=== PATIENT | female | born 1955 | race African-American/Black ===

== ENCOUNTER 2024-06-28 06:48 | Day surgery (SDC) | payer OTHER ==
[2024-06-25 10:08] LABS: Absolute Basophils 0.1 K/uL (0-0.5); Absolute Eosinophils 0.2 K/uL (0-0.5); Absolute Lymphocytes (CBC) 2.1 K/uL (0.7-4.9); Absolute Monocytes 0.6 K/uL (0.1-1.3); Absolute Neutrophil 4.3 K/uL (1.8-8.0); Basophils % 0.9 % (0-1.3); Eosinophils % 2.4 % (0-4.4); Hematocrit 38.7 % (36.0-45.0); Hemoglobin 13.3 g/dL (12.0-15.0); Lymphocytes % 29.4 % (15.3-44.8); MCH 32.7 pg (27.0-35.0); MCHC 34.3 g/dL (32.0-36.0); MCV 95.3 fL (80-100); MPV 7.4 fL (7.6-11.3); Monocytes % 7.7 % (3.3-12.3); Neutrophils % 59.6 % (41.7-73.7); Nucleated Red Blood Cells % 0.1 % (0-0); Platelets 405 thou/uL (152-406); RBC Red Blood Cell Count 4.06 M/uL (3.86-4.86); Red Cell Distribution Width 13.1 % (12.1-15.2)
[2024-06-25 10:20] LABS: Protime INR 1.15
[2024-06-25 10:21] LABS: Anion Gap 6.8 mEq/L (5.0-15.0); PTT, Activated Partial Thromb 30.6 SECONDS (27.2-37.4); Potassium 3.8 mEq/L (3.5-5.1)
--- NOTE | 2024-06-25 11:56 | EKG ---
Test Date: 2024-06-25 Test Time: 09:54:47 Saturator: MICHELLE MEASUREMENT RESULTS: Intervals: Rate: 67 CA: 144 QRSD: 84 QT: 360 QTc: 380 [place]: P: 59 CA: 144 QRS: 32 T: 68 INTERPRETIVE STATEMENTS: Normal sinus rhythm with sinus arrhythmia Normal ECG No previous ECG available for comparison Electronically Signed On 06-25-24 11:55:17 CDT by Jaun Torres
--- NOTE | 2024-06-25 12:32 | RAD REPORT ---
EXAMINATION: TWO VIEW CHEST XR CLINICAL INDICATION: Female, 69 years old. 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 Hypertension TECHNIQUE: 2 view radiographs of the chest were performed. COMPARISON: No prior exam. FINDINGS: The lungs are well inflated and clear. No pneumothorax or sizable effusion. The heart is normal in si ze. Mediastinal contours are unremarkable. IMPRESSION: No acute or significant abnormalities.
[2024-06-28] MEDS ORDERED: ATROPINE SULF 1 MG/10 ML SYR IV ONE ×2 (07:02→14:12)
[2024-06-28] MEDS ORDERED: NITROGLYCERIN/D5W 50 MG/250 ML BTL IV ONE (07:02)
[2024-06-28] MEDS ORDERED: VERAPAMIL HCL 10 MG/4 ML VIAL IV ONE ×2 (07:02→14:12)
[2024-06-28] MEDS ORDERED: HEPA 1000U/500MLS 2,000 UNIT/1,000 ML BAG IV ONE (07:02)
[2024-06-28] MEDS ORDERED: LIDOCAINE 1% 20 ML MDV ONE ×2 (07:02→14:12)
[2024-06-28] MEDS ORDERED: HEPARIN 5000 UNIT/ML 1 ML VIAL ONE ×2 (07:02→14:12)
[2024-06-28] MEDS ORDERED: NA CHLORIDE 0.9% 500 ML ONE (07:07)
[2024-06-28] MEDS ORDERED: FENTANYL CITR 100 MCG/2 ML ONE (14:12)
[2024-06-28] MEDS ORDERED: MIDAZOLAM HCL 2 MG/2 ML INJ ONE (14:12)
[2024-06-28 17:19] VITALS: BP 137/59; O2SAT 100
--- NOTE | 2024-06-28 21:44 | OP ---
Date of Procedure: 06/28/2024 Surgeon: ROMAN COOL Procedure Performed: Peripheral angiogram with runoff. Indication: Peripheral vascular disease. Access: Right radial artery 6-Malian, closed with TR band. Complications: None. Bleeding: Less than 50 mL. Anesthesia: Total sedation time is 45 minutes. Used fentanyl and Versed. Description Of Procedure: After risks, benefits, and alternatives were explained, patient agreed to procedure and signed informed consent. The patient was brought in to cardiac catheterization [facility], prepped and draped in sterile fashion. Then, I accessed right radial artery using pediatric kleber ropuncture kit, placed 6-Malian Slender sheath and took a long 4-Malian pigtail catheter into the rad ial access over J-wire, into the distal aorta, performed distal aortogram and runoff, and then remove d the catheter and the sheath, placed TR band with good hemostasis. Findings: 1. Distal aorta: Widely patent. 2. Right lower extremity: The common iliac and into the external iliac, there is focal 80% to 90% st enosis. The common femoral artery is patent. Profunda is patent. SFA, it has mild diffuse 20% sten osis. Popliteal artery is normal. Anterior tibial, tibial trunk, posterior tibial, and peroneal are all with mild disease. 3. Left lower extremity: The common iliac has 80% stenosis extending into the external iliac and com mon femoral has 60% stenosis. Profunda is patent. SFA has mid 50% stenosis. Then, the popliteal, a nterior tibial, tibial trunk, posterior tibial, and peroneal are with mild disease about 10% to 20%. 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 Recommendations: Balloon angioplasty, shockwave lithotripsy to be done at [place] for both common iliac arteries, which can be done same day. SR/MODL Voice ID: [id number] Report ID: [id number]
== END 2024-06-28 17:40 | disposition home or self-care (01) ==
LOC: CCL 06:48
PROVIDERS: ATTEND Internal Medicine
DX: I70.223 Atherosclerosis of native arteries of extremities with rest pain, bilateral legs (principal); I10 Essential (primary) hypertension; E78.2 Mixed hyperlipidemia; R60.9 Edema, unspecified; F17.210 Nicotine dependence, cigarettes, uncomplicated; Z79.899 Other long term (current) drug therapy; Z82.49 Family history of ischemic heart disease and other diseases of the circulatory system
CPT/HCPCS: 93005; 85025; 80048; 36415; 85610; 85730; 71046; 36200; 75630; 76937; C1893; J1644 ×2; J2003 ×2; J2250; J3010; J7040; 75625; 99152; J0461